=== PATIENT | female | born 1980 | race Caucasian/White ===

== ENCOUNTER 2023-03-28 08:53 | Emergency (ER) | payer SELFPAY ==
[2023-03-28 09:10] VITALS: BP 133/73; PULSE 102
[2023-03-28] MEDS: cefTRIAXone 1 GM Vial IM ONE (09:38)
[2023-03-28] MEDS: Lidocaine 1% 5 ML VIAL INJECT ONE (09:38)
[2023-03-28] MEDS: Lidocaine 1% 5 ML VIAL ONE (09:38)
== END 2023-03-28 09:59 | disposition home or self-care (01) ==
LOC: JP.ED 08:53
DX: L03.115 Cellulitis of right lower limb (principal); F17.210 Nicotine dependence, cigarettes, uncomplicated
CPT/HCPCS: 96372; 99283; J0696